=== PATIENT | male | born 1990 | race African-American/Black ===

== ENCOUNTER 2022-02-11 02:33 | Emergency (ER) | payer SELFPAY ==
[2022-02-11 02:46] VITALS: BP 134/90; PULSE 72; RESP 18; TEMP 98.4
--- NOTE | 2022-02-11 03:38 | XR ---
EXAMINATION TYPE: XR hand complete RT DATE OF EXAM: 02/11/2022 COMPARISON: NONE HISTORY: Pain TECHNIQUE: 3 views FINDINGS: There is acute transverse fracture of the distal shaft of the fifth metacarpal. No signific ant displacement. There is mild impaction. The carpal bones are intact. The fingers are intact. There is some soft tissue swelling on the dorsum of the hand. IMPRESSION: Acute boxer fracture distal fifth metacarpal. Soft tissue swelling.
--- NOTE | 2022-02-11 03:49 | ED ---
Upper Extremity HPI - General Chief Complaint: Extremity Injury, Upper Stated Complaint: RT hand injury Time Seen by Provider: 02/11/22 02:55 Source: police Mode of arrival: ambulatory Limitations: no limitations - Related Data Previous Rx's Medication Instructions Recorded Ibuprofen [Motrin] 600 mg PO Q8HR PRN #60 tab 02/11/22 Allergies Allergy/AdvReac Type Severity Reaction Status Date / Time No Known Allergies Allergy Verified 02/11/22 02:46 Review of Systems ROS Statement: Those systems with pertinent positive or pertinent negative responses have been documented in the HPI. ROS Other: All systems not noted in ROS Statement are negative. Past Medical History Past Medical History: No Reported History History of Any Multi-Drug Resistant Organisms: None Reported Past Surgical History: No Surgical Hx Reported Past Psychological History: No Psychological Hx Reported Smoking Status: Never smoker Past Alcohol Use History: None Reported Past Drug Use History: None Reported General Exam Limitations: no limitations Course Vital Signs 02/11/22 02:44 Temperature 98.4 F Pulse Rate 72 Respiratory 18 Rate Blood Pressure 134/90 O2 Sat by Pulse 98 Oximetry - Reevaluation(s) Reevaluation #1: 02/11/22 medical record is reviewed Patient symptoms are improved here in the ER Patient informed of results and questions answered Disposition Clinical Impression: Closed right hand fracture Disposition: HOME SELF-CARE Condition: Good Instructions (If sedation given, give patient instructions): Hand Fracture (ED) Prescriptions: Ibuprofen [Motrin] 600 mg PO Q8HR PRN #60 tab PRN Reason: Pain Is patient prescribed a controlled substance at d/c from ED?: No Referrals: None,Stated [Primary Care Provider] - 1-2 days Time of Disposition: 04:00
[2022-02-11] MEDS ORDERED: IBUPROFEN 800 MG TAB PO STA (03:51)
== END 2022-02-11 04:07 | disposition home or self-care (01) ==
LOC: EC 02:33
DX: S62.306A Unspecified fracture of fifth metacarpal bone, right hand, initial encounter for closed fracture (principal); X58.XXXA Exposure to other specified factors, initial encounter
CPT/HCPCS: 99283

== ENCOUNTER 2022-05-05 01:04 | Inpatient (IN) | payer OTHER ==
--- NOTE | 2022-05-05 01:50 | ED ---
General Adult HPI - General Chief complaint: Psychiatric Symptoms Stated complaint: Mental Health Time Seen by Provider: 05/05/22 01:42 Source: patient Mode of arrival: ambulatory Limitations: no limitations - History of Present Illness Initial comments: This is a 31-year-old male was brought in by police for delusional thoughts and causing his seen at a hotel. It was reported by police that the patient was half dressed in a hotel lobby waiting for "somebody was after him to come get him." The patient reportedly had his hotel room 20 heart looking for a wire. On arrival, the patient was manic and speaking very quickly about multiple different topics including "I haven't done anything to anyones kids" and "trigger situations cause this, trigger situations." The patient himself denied any homicidal or suicidal ideations. The patient stated that he has not been diagnosed with any medical problems nor takes any medications however was an ove rall poor historian. The patient was mumbling [id number] able to answer questions intermittently. - Related Data Previous Rx's Medication Instructions Recorded Ibuprofen [Motrin] 600 mg PO Q8HR PRN #60 tab 02/11/22 Allergies Allergy/AdvReac Type Severity Reaction Status Date / Time No Known Allergies Allergy Verified 02/11/22 02:46 Review of Systems ROS Statement: Those systems with pertinent positive or pertinent negative responses have been documented in the HPI. ROS Other: All systems not noted in ROS Statement are negative. Past Medical History Past Medical History: No Reported History History of Any Multi-Drug Resistant Organisms: None Reported Past Surgical History: No Surgical Hx Reported Past Psychological History: No Psychological Hx Reported Smoking Status: Never smoker Past Alcohol Use History: None Reported Past Drug Use History: None Reported General Exam Limitations: no limitations General appearance: alert, in no apparent distress Head exam: Present: atraumatic, normocephalic, normal inspection Eye exam: Present: normal appearance, PERRL Pupils: Present: normal accommodation ENT exam: Present: normal exam, normal oropharynx, mucous membranes moist Neck exam: Present: normal inspection, full ROM Respiratory exam: Present: normal lung sounds bilaterally Cardiovascular Exam: Present: regular rate, normal rhythm, normal heart sounds GI/Abdominal exam: Present: soft, normal bowel sounds Extremities exam: Present: normal inspection, full ROM Back exam: Present: normal inspection, full ROM Neurological exam: Present: alert, altered (Intermittently altered, pressured speech) Psychiatric exam: Present: anxious, manic, other (Delusions and pressured sp eech, speaking about multiple subjects one after another) Skin exam: Present: warm, dry Course Vital Signs 05/05/22 05/05/22 05/05/22 01:07 04:00 05:45 Temperature 99.1 F Pulse Rate 132 H 93 149 H Respiratory 16 18 18 Rate Blood Pressure 191/109 97/68 159/108 O2 Sat by Pulse 95 98 92 L Oximetry Procedures - Restraint - Face to Face Restraint Occurrence 1 Patient's Immediate Situation: Endangers self safety, Endangers others' safety Patient's Reaction to the Intervention: Hostile, Aggressive, Combative, Resistive to care Patient's Medical & Behavioral Condition: Agitated, Manic Need to Continue or Terminate Restraint or Seclusion: Continue Face to Face Eval of Restraint Date: 05/05/22 Face to Face Eval of Restraint Time: 05:20 Medical Decision Making - Medical Decision Making Was pt. sent in by a medical professional or institution (, PA, BLIND STITCH MACHINE OPERATOR, urgent care, hospital, or [facility]...) When possible be specific @ -No Did you speak to anyone other than the patient for history (EMS, parent, family, police, friend...)? What history was obtained from this source @ -Yes, police Did you review nursing and triage notes (agree or disagree)? Why? @ -I reviewed and agree with nursing and triage notes Were old charts reviewed (outside hosp., previous admission, EMS record, old EKG, old radiological studies, urgent care reports/EKG's, [facility] records)? Report findings @ -No old charts were reviewed Differential Diagnosis (chest pain, altered mental status, abdominal pain women, abdominal pain men, vaginal bleeding, weakness, fever, dyspnea, syncope, headache, dizziness, GI bleed, back pain, seizure, CVA, palpatations, mental health)? @ -Acute psychosis, paranoid schizophrenia, polysubstance abuse EKG interpreted by me (3pts min.). @ -None X-rays interpreted by me (1pt min.). @ -None done CT interpreted by me (1pt min.). @ -None done U/S interpreted by me (1pt. min.). @ -None done What testing was considered but not performed or refused? (CT, X-rays, U/S, labs)? Why? @ -None What meds were considered but not given or refused? Why? @ -None Did you discuss the management of the patient with other professionals (professionals i.e. , PA, BLIND STITCH MACHINE OPERATOR, lab, RT, psych nurse, social psychologist, kiln labourer, teacher, peace officer, heel caser)? Give summary @ -Yes, EPS nurse Was smoking cessation discussed for >3mins.? @ -Yes Was critical care preformed (if so, how long)? @ -Yes, see above Were there social determinants of health that impacted care today? How? (Homelessness, low income, unemployed, alcoholism, drug addiction, transportation, low edu. Level, literacy, decrease access to med. care, fci, rehab)? @ -Drug addiction Was there de-escalation of care discussed even if they declined (Discuss DNR or withdrawal of care, Hospice)? DNR status @ -No What co-morbidities impacted this encounter? (DM, HTN, Smoking, COPD, CAD, Cancer, CVA, ARF, Chemo, Hep., AIDS, mental health diagnosis, sleep apnea, morbid obesity)? @ -None Was patient admitted / discharged? Hospital course, mention meds given and route, prescriptions, significant lab abnormalities, going to OR and other pertinent info. @ -The patient was seen and evaluated in the emergency department. On arrival, the patient was accompanied by police and was petitioned. The patient was having delusions as well as hearing auditory hallucinations as he was having conversations with himself. On arrival, laboratory workup was not initially obtained however a breath alcohol test was administered and was 0.02. The patient was medically cleared for EPS to evaluate. The patient was called and was able to answer questions intermittently in between carrying conversation with himself. EPS evaluated the patient and did recommend laboratory workup as well as urine drug screen and COVID-19 test as they did recommend transfer for psychiatric care. Due to the patient's tenuous behavior, police were called for backup however the patient did ultimately agree to have his blood drawn and Covid test obtained. The patient remained stable. Laboratory workup was obtained and the patient was no longer medically cleared and needs to be medically admitted per EPS at 0445. Laboratory workup was significant for a glucose of 51, creatinine 1.93 as well as an elevated bilirubin. The patient struggled but was ultimately agreeable to having an IV placed however when reevaluated and told that he would need IV fluids and to be admitted, the patient had ripped out his IV and was no longer answering questions or responding. Because of this in the setting of the patient petitioned and needing medical management, police were called once again and the patient was given medications as well as restrained. The patient was given 2 L of normal saline fluid as well as dextrose. The patient was admitted with psychiatry on consult. The patient does have a primary care physician therefore [facility], Dr. Arciniega was contacted at [phone] and did accept the patient for admission. As the patient did require significant amount of sedation, the patient did also receive 100 mg of ketamine IV. The patient continued to thrash and yell and be aggressive toward staff. Because of this and in the interest a safety for the patient and the staff, the patient will be placed in ICU. The patient will also be started on a Precedex drip. Dr. Chow was contacted and did accept the patient for admission to the ICU. The patient was admitted in stable condition. Undiagnosed new problem with uncertain prognosis? @ -No Drug Therapy requiring intensive monitoring for toxicity (Heparin, Nitro, Insulin, Cardizem)? @ -No Were any procedures done? @ -No Diagnosis/symptom? @ -Acute psychosis Acute, or Chronic, or Acute on Chronic? @ -Acute Uncomplicated (without systemic symptoms) or Complicated (systemic symptoms)? @ -Complicated Side effects of treatment? @ -No Exacerbation, Progression, or Severe Exacerbation? @ -No Poses a threat to life or bodily function? How? (Chest pain, USA, MD, pneumonia, PE, COPD, DKA, ARF, appy, cholecystitis, CVA, Diverticulitis, Homicidal, Suicidal, threat to staff... and all critical care pts) @ -Yes, acute psychosis can cause self-harm and possible . Diagnosis/symptom? @ -Dehydration, KJ Acute, or Chronic, or Acute on Chronic? @ -Acute Uncomplicated (without systemic symptoms) or Complicated (systemic symptoms)? @ -Complicated Side effects of treatment? @ -none Exacerbation, Progression, or Severe Exacerbation] @ -no Poses a threat to life or bodily function? @ -Yes, continued dehydration and KJ can cause worsening and permanent kidney damage - Lab Data Result diagrams: 05/05/22 03:33 05/05/22 03:33 Lab Results 05/05/22 05/05/22 05/05/22 Range/Units 03:33 03:33 03:33 WBC 19.3 H (3.8-10.6) k/uL RBC 5.23 (4.30-5.90) m/uL Hgb 15.3 (13.0-17.5) gm/dL Hct 45.3 (39.0-53.0) % MCV 86.6 (80.0-100.0) fL MCH 29.2 (25.0-35.0) pg MCHC 33.7 (31.0-37.0) g/dL RDW 12.7 (11.5-15.5) % Plt Count 260 (150-450) k/uL MPV 7.7 Neutrophils % 86 % Lymphocytes % 6 % Monocytes % 6 % Eosinophils % 1 % Basophils % 0 % Neutrophils # 16.6 H (1.3-7.7) k/uL Lymphocytes # 1.2 (1.0-4.8) k/uL Monocytes # 1.1 H (0-1.0) k/uL Eosinophils # 0.2 (0-0.7) k/uL Basophils # 0.1 (0-0.2) k/uL Sodium 140 (137-145) mmol/L Potassium 4.8 (3.5-5.1) mmol/L Chloride 102 (98-107) mmol/L Carbon Dioxide 19 L (22-30) mmol/L Anion Gap 19 mmol/L BUN 35 H (9-20) mg/dL Creatinine 1.93 H (0.66-1.25) mg/dL Est GFR (CKD-EPI)AfAm 52 (>60 ml/min/1.73 sqM) Est GFR (CKD-EPI)NonAf 45 (>60 ml/min/1.73 sqM) Glucose 52 L (74-99) mg/dL Calcium 9.9 (8.4-10.2) mg/dL Total Bilirubin 2.9 H (0.2-1.3) mg/dL AST 134 H (17-59) U/L ALT 67 H (4-49) U/L Alkaline Phosphatase 93 (38-126) U/L Total Protein 8.6 H (6.3-8.2) g/dL Albumin 5.5 H (3.5-5.0) g/dL Serum Alcohol 15 mg/dL Coronavirus (PCR) Not Detected (Not Detectd) Critical Care Time Critical Care Time: Yes Total Critical Care Time: 46 Disposition Clinical Impression: Psychosis, Dehydration, KJ (acute kidney injury) [facility] Condition: Stable Is patient prescribed a controlled substance at d/c from ED?: No Referrals: None,Stated [Primary Care Provider] - 1-2 days Time of Disposition: 04:50 Decision to Admit Reason: Admit from EC Decision Date: 05/05/22 Decision Time: 04:50
[2022-05-05] MEDS ORDERED: diphenhydrAMINE 50 MG/ML 1 ML VIAL IM STA ×2 (03:09→04:49)
[2022-05-05] MEDS ORDERED: LORazepam 2 MG/ML INJ IM STA ×2 (03:09→04:49)
[2022-05-05] MEDS ORDERED: HALOPERIDOL LACTATE 5 MG/ML 1 ML VIAL IM STA ×2 (03:09→04:49)
[2022-05-05 03:39] LABS: Basophils # (A) 0.1 k/uL (0-0.2); Basophils % (A) 0 %; Eosinophils # (A) 0.2 k/uL (0-0.7); Eosinophils % (A) 1 %; HCT 45.3 % (39.0-53.0); HGB 15.3 gm/dL (13.0-17.5); Lymphocytes # (A) 1.2 k/uL (1.0-4.8); Lymphocytes % (A) 6 %; MCH 29.2 pg (25.0-35.0); MCHC 33.7 g/dL (31.0-37.0); MCV 86.6 fL (80.0-100.0); Mean Platelet Volume 7.7; Monocytes # (A) 1.1 k/uL (0-1.0); Monocytes % (A) 6 %; Neutrophils # (A) 16.6 k/uL (1.3-7.7); Neutrophils % (A) 86 %; Platelet Count 260 k/uL (150-450); RBC 5.23 m/uL (4.30-5.90); RDW 12.7 % (11.5-15.5); WBC 19.3 k/uL (3.8-10.6)
[2022-05-05 03:51] LABS: Albumin 5.5 g/dL (3.5-5.0); Calcium 9.9 mg/dL (8.4-10.2); Potassium 4.8 mmol/L (3.5-5.1); Total Bilirubin 2.9 mg/dL (0.2-1.3); Total Protein 8.6 g/dL (6.3-8.2)
[2022-05-05] MEDS ORDERED: DEXTROSE 50% SYRINGE 50 ML IVP STA (04:17)
[2022-05-05] MEDS ORDERED: SODIUM CHLORIDE 0.9% 1,000 ML IV ONE ×2 (04:17→04:54)
[2022-05-05] MEDS ORDERED: diphenhydrAMINE 50 MG/ML 1 ML VIAL IVP STA (04:20)
[2022-05-05] MEDS ORDERED: LORazepam 2 MG/ML INJ IV STA (04:20)
[2022-05-05] MEDS ORDERED: HALOPERIDOL LACTATE 5 MG/ML 1 ML VIAL IVP STA (04:20)
[2022-05-05] MEDS ORDERED: NALOXONE 0.4 MG/ML 1 ML VIAL IV PRN (04:54)
[2022-05-05] MEDS ORDERED: SODIUM CHLORIDE 0.9% 1,000 ML IV SCH (05:00)
[2022-05-05] MEDS ORDERED: KETAMINE 10 MG/ML 20 ML VIAL IVPB STA (05:39)
[2022-05-05 05:57] LABS: Glucose,Whole Blood 151 mg/dL (70-110)
--- NOTE | 2022-05-05 06:01 | P.HPIM ---
History of Present Illness H&P Date: 05/05/22 The patient is a 31-year-old male who was brought into the emergency room under police custody for erratic behavior. The patient was reportedly making is seen at a hotel, where he was half dressed standing in the lobby. After arrival at the emergency room, the patient was noted to be hyperverbal and manic. He was evaluated by psychiatry and recommended for a medical admission. The patient also became very agitated in the emergency room requiring multiple people to intervene and subsequently being placed in restraints. The patient was actively psychotic at the time of interview and was not answering any questions appropriately. Unknown if patient consumed any substances. A urine sample could not be obtained due to the patient being extremely combative. Review of systems: Unable to obtain due to mental status Physical examination: Vital signs reviewed General: In restraints, non toxic, no distress, appears at stated age, overweight Derm: no unusual rashes/lesions, warm Head: atraumatic, normocephalic, symmetric Eyes: EOMI, no lid lag, anicteric sclera, pupils equal round reactive to light ENT: Nose and ears atraumatic Neck: No cervical lymphadenopathy, trachea midline, supple Mouth: no lip lesion, mucus membranes moist Cardiovascular: S1S2 reg, no murmur, positive dorsalis pedis pulse bilateral, no edema Lungs: CTA bilateral, no rhonchi, no rales, no accessory muscle use Abdominal: soft, nontender to palpation, no guarding Ext:No gross muscle atrophy, no contractures, Neuro: No gross focal neuro deficits Psych: Internally preoccupied, speaking incoherently Assessment: Agitated psychosis Leukocytosis Kidney injury Abnormal LFTs Hypoglycemia Imaging: None performed Data Review: Vital signs at time of arrival in the emergency room reviewed with BP 191/109, pulse 132, respiratory rate 16, SpO2 95% on room air, and temperature 99.1F. Laboratory evaluation remarkable for leukocytosis of 19.3, BUN 35, creatinine 1.93, glucose 52, total bilirubin 2.9, AST 134, ALT 67, with serum alcohol level XV Plan: Case discussed with ED physician in extensive detail Patient to be admitted to medical ICU and initiated on Precedex infusion Psychiatry consulted Leukocytosis suspect is secondary to acute stressor IV fluids and monitor BMP and LFTs DVT prophylaxis: Lovenox The patient is admitted with an anticipated greater than 2 midnight stay for evaluation of delirium CODE STATUS: Full Code Past Medical History Past Medical History: No Reported History History of Any Multi-Drug Resistant Organisms: None Reported Past Surgical History: No Surgical Hx Reported Past Psychological History: No Psychological Hx Reported Smoking Status: Never smoker Past Alcohol Use History: None Reported Past Drug Use History: None Reported - Past Family History Father Family Medical History: Unable to Obtain (due to mental status) Medications and Allergies Home Medications Medication Instructions Recorded Confirmed Type Ibuprofen [Motrin] 600 mg PO Q8HR PRN #60 tab 02/11/22 Rx Allergies Allergy/AdvReac Type Severity Reaction Status Date / Time No Known Allergies Allergy Verified 02/11/22 02:46 Physical Exam Vitals: Vital Signs Temp Pulse Resp BP Pulse Ox 05/05/22 05:45 149 H 18 159/108 92 L 05/05/22 04:00 93 18 97/68 98 05/05/22 01:07 99.1 F 132 H 16 191/109 95 Intake and Output 05/04/22 05/04/22 05/05/22 14:59 22:59 06:59 Other: Weight 117.934 kg Results CBC & Chem 7: 05/05/22 03:33 05/05/22 03:33 Labs: Abnormal Lab Results - Last 24 Hours (Table) 05/05/22 05/05/22 05/05/22 Range/Units 03:33 03:33 05:54 WBC 19.3 H (3.8-10.6) k/uL Neutrophils # 16.6 H (1.3-7.7) k/uL Monocytes # 1.1 H (0-1.0) k/uL Carbon Dioxide 19 L (22-30) mmol/L BUN 35 H (9-20) mg/dL Creatinine 1.93 H (0.66-1.25) mg/dL Glucose 52 L (74-99) mg/dL POC Glucose (mg/dL) 151 H (70-110) mg/dL Total Bilirubin 2.9 H (0.2-1.3) mg/dL AST 134 H (17-59) U/L ALT 67 H (4-49) U/L Total Protein 8.6 H (6.3-8.2) g/dL Albumin 5.5 H (3.5-5.0) g/dL
[2022-05-05] MEDS: DEXMEDETOMIDINE/0.9% NACL(PMX) 400 MCG in EMPTY BAG 1 BAG IV SCH ×2 (06:15→22:58)
[2022-05-05 06:23] LABS: Glucose,Whole Blood 107 mg/dL (70-110)
--- NOTE | 2022-05-05 09:18 | P.CNPUL ---
History of Present Illness Consult date: 05/05/22 Chief complaint: Altered mental status History of present illness: 31-year-old male patient brought into the emergency department because of his active and aggressive behavior. The patient was in a [place] [facility] motel where he was found to active years and he was half dressed in the lobby. He was brought into the emergency department and the patient was in a manic state. He became very agitated in the emergency department. It took at least 10 people to restrain this gentleman. He was acting psychotic. At that point, he was given Haldol 5 mg 2, Ativan a total of 2 mg, ketamine a total of 100 mg and Benadryl a total of 100 mg. Subsequently, the patient got transferred to intensive care unit and the patient is currently on a Precedex drip running at 0.4 mcg/kg/h. Serum alcohol was positive at 15. Covid 19 testing was negative. Labs showed an acute kidney injury with a BUN of 35 and a creatinine of 1.9. Sodiums of 140 with a potassium level of 4.8. Glucose was 52 and this was treated and the sugar currently is at 107. The previous gauze at 19.3 hemoglobin is 15.3 and the platelet does to 60. Urine drug screen has not been done yet and this sample has been sent and was not resulted. No chest x-ray. No CAT scan of the brain. Currently is on also on IV fluids with normal saline at the rate of 75 mL an hour. He is in sinus tachycardia. He is on oxygen at 2 L per minute nasal cannula. Review of Systems ROS unobtainable: due to mental status Past Medical History Past Medical History: No Reported History History of Any Multi-Drug Resistant Organisms: None Reported Past Surgical History: No Surgical Hx Reported Past Psychological History: No Psychological Hx Reported Smoking Status: Never smoker Past Alcohol Use History: None Reported Past Drug Use History: None Reported - Past Family History Father Family Medical History: Unable to Obtain (due to mental status) Medications and Allergies Home Medications Medication Instructions Recorded Confirmed Type RX: Ibuprofen [Motrin] 600 mg PO Q8HR PRN #60 tab 02/11/22 Rx Allergies Allergy/AdvReac Type Severity Reaction Status Date / Time No Known Allergies Allergy Verified 02/11/22 02:46 Physical Exam Vitals: Vital Signs Temp Pulse Resp BP Pulse Ox 05/05/22 05:45 149 H 18 159/108 92 L 05/05/22 04:00 93 18 97/68 98 05/05/22 01:07 99.1 F 132 H 16 191/109 95 Intake and Output 05/04/22 05/05/22 05/05/22 22:59 06:59 14:59 Intake Total 3.685 Balance 3.685 Intake: Intake, IV Titration 3.685 Amount Dexmedetomidine/0.9% NaCl 3.685 (Pmx) 400 mcg In Empty Bag 1 bag @ 0.2 MCG/KG/HR 5.897 mls/hr IV .[id number] [facility] Rx#:[id number] Other: Weight 117.934 kg General: In restraints, non toxic, no distress, appears at stated age, overweight, currently on 2 L/m nasal cannula, calm and comfortable on Precedex Derm: no unusual rashes/lesions, warm Head: atraumatic, normocephalic, symmetric Eyes: EOMI, no lid lag, anicteric sclera, pupils equal round reactive to light ENT: Nose and ears atraumatic Neck: No cervical lymphadenopathy, trachea midline, supple Mouth: no lip lesion, mucus membranes moist Cardiovascular: S1S2 reg, no murmur, positive dorsalis pedis pulse bilateral, no edema Lungs: CTA bilateral, no rhonchi, no rales, no accessory muscle use Abdominal: soft, nontender to palpation, no guarding Ext:No gross muscle atrophy, no contractures, Neuro: No gross focal neuro deficits Psych: Internally preoccupied, speaking incoherently Results - Laboratory Findings CBC and BMP: 05/05/22 03:33 05/05/22 03:33 Abnormal lab findings: Abnormal Labs 05/05/22 05/05/22 05/05/22 03:33 03:33 05:54 WBC 19.3 H Neutrophils # 16.6 H Monocytes # 1.1 H Carbon Dioxide 19 L BUN 35 H Creatinine 1.93 H Glucose 52 L POC Glucose (mg/dL) 151 H Total Bilirubin 2.9 H AST 134 H ALT 67 H Total Protein 8.6 H Albumin 5.5 H Assessment and Plan Plan: Altered mental status, acute delirium, could be medication or drug-related. Exact cause is not clear. The patient is currently on Precedex to control his agitation running at a dose of 0.4 mcg/kg/h. He is hemodynamically stable. Acute alcohol intoxication Sinus tachycardia Acute kidney injury Acute agitation/psychosis Plan Obtain urine drug screen Obtain chest x-ray Obtain CPK Continue IV fluids with normal saline at the rate of 75 mL an hour and monitor the creatinine Monitor the white cell count The blood sugars May need a CAT scan of the brain if there is no reasonable neurological recovery Keep in ICU and will continue to monitor Off the IV Protonix Obtain urinalysis [place] Lovenox portably prophylaxis
--- NOTE | 2022-05-05 10:13 | XR ---
EXAMINATION TYPE: XR chest 1V portable DATE OF EXAM: 05/05/2022 10:08 AM COMPARISON: None TECHNIQUE: XR chest 1V portable Portable AP radiograph of the chest. CLINICAL INDICATION:Male, 31 years old with history of baseline; FINDINGS: Lungs/Pleura: There is no evidence of pleural effusion, focal consolidation, or pneumothorax. Pulmonary vascularity: Unremarkable. Heart/mediastinum: Cardiomediastinal silhouette is unremarkable. Musculoskeletal: No acute osseous pathology. IMPRESSION: No acute cardiopulmonary disease/process.
[2022-05-05] MEDS: ENOXAPARIN 40 MG/0.4 ML SYRINGE SQ SCH (10:16)
--- NOTE | 2022-05-05 10:50 | P.PN ---
Progress Note - Text Progress Note Date: 05/05/22 Patient was seen in the ICU. He came into the ED for agitation and delirium. Patient currently is somnolent from sedation. He is also on 4. restraints. I discussed with the nurse that whenever patient gets up his confused. Nurse also said that a UDS was sent. We'll continue current management.
[2022-05-05 11:04] LABS: Glucose,Whole Blood 56 mg/dL (70-110)
[2022-05-05] MEDS ORDERED: DEXTROSE 50% SYRINGE 50 ML IVP ONE (11:04)
[2022-05-05 11:26] LABS: Glucose,Whole Blood 134 mg/dL (70-110)
[2022-05-05 13:44] LABS: Glucose,Whole Blood 68 mg/dL (70-110)
[2022-05-05] MEDS: DEXTROSE 5% IN WATER 1,000 ML IV SCH ×2 (14:03→22:34)
[2022-05-05 14:05] LABS: Glucose,Whole Blood 79 mg/dL (70-110)
[2022-05-05 16:01] LABS: Glucose,Whole Blood 100 mg/dL (70-110)
[2022-05-05 18:13] LABS: Glucose,Whole Blood 98 mg/dL (70-110)
[2022-05-05 18:16] LABS: Urine Alcohol Negative (Negative); Urine Barbiturate Negative (Negative); Urine Cocaine Negative (Negative); Urine Methadone Negative (Negative); Urine Opiates Negative (Negative); Urine Phencyclidine Negative (Negative)
[2022-05-05 21:43] LABS: Glucose,Whole Blood 103 mg/dL (70-110)
--- NOTE | 2022-05-05 23:32 | P.CN ---
Psychiatric Consult - . Consult date: 05/05/22 Consult:: IDENTIFYING DATA: This patient is a 31 year old male with history of alcohol and substance abuse who was admitted due to acute psychosis. REASON FOR REFERRAL: Psychiatry was consulted for "acute psychosis, petitioned" HISTORY OF PRESENT ILLNESS: Per ER records, patient was "brought in by police for delusional thoughts and causing his seen at a hotel. It was reported by police that the patient was half dressed in a hotel lobby waiting for "somebody was after him to come get him." The patient reportedly had his hotel room 20 heart looking for a wire. On arrival, the patient was manic and speaking very quickly about multiple different topics including "I haven't done anything to anyones kids" and "trigger situations cause this, trigger situations." The patient himself denied any homicidal or suicidal ideations. The patient stated that he has not been diagnosed with any medical problems nor takes any medications however was an overall poor historian. The patient was mumbling [id number] able to answer questions intermittently." "He became very agitated in the emergency department. It took at least 10 people to restrain this gentleman. He was acting psychotic. At that point, he was given Haldol 5 mg 2, Ativan a total of 2 mg, ketamine a total of 100 mg and Benadryl a total of 100 mg." On my assessment, patient was found asleep in his ICU bed with sitter at bedside. Staff report he has been drowsy but calm, not agitated most of the day. He has difficulty staying awake during our assessment but is able to provide brief answers in a mumbled soft tone. Patient reports he was drinking alcohol and using Arely prior to this event. He reports this happened 2 other times when he flipped out after taking too much Arely and was hearing voices and seei ng things previously. Patients admits to using about 1 pint of Tony Emeterio daily for the past 2-3 months. Vital signs appears stable currently no symptoms of alcohol withdrawal. He also admits to smoking marijuana. At this time patient denies any suicidal or homicidal ideation, intent or plan. Patient denies any auditory, visual hallucinations currently and denies any paranoia or delusions. PAST PSYCHIATRIC HISTORY: Patient has a a history of of 2 prior episodes of substance induced psychosis. Patient denies being on any psychiatric medications. Patient reports previous psychiatric hospitalizations in [place] in January 2015 after similar psychotics episode when using too much Arely. Patient denies any psychiatric outpatient follow-up. Patient denies any history of suicide attempts in the past. PAST MEDICAL HISTORY: denies ALLERGIES: as per EMR. CHEMICAL DEPENDENCY HISTORY: as per HPI. FAMILY PSYCHIATRIC/SUBSTANCE USE HISTORY: denies SOCIAL HISTORY: Lives in a house with his cousin. Never , has 2 children. Works at [employer] MENTAL STATUS EXAM: General Appearance: Patient appears to be stated age , has many tattoos on his chest and arms. Behavior: Patient is sleepy, laying in bed without any agitated behavior currently, but was severely agitated last night and required multiples PRNs and restraints. Speech: Patient's speech is fluent and non-pressured. Mood/Affect: Mood is irritable, affect is blunted Suicidality/Homicidality: Patient denies having any suicidal or homicidal ideation intent or plan. Perceptions: Patient denies any visual hallucinations and denies any auditory hallucinations Though content/process: There is no evidence of any delusional thought content at this itime, and thought process is linear but brief. Memory and concentration: Sleepy from PRNS medications given overnight. Unable to fully assess orientation. Judgment and insight: poor IMPRESSIONS: Substance-induced psychosis Cannabis use disorder Alcohol use disorder Stimulant use disorder PLAN: -At this time, it is possible patient may require inpatient psychiatric admission. He was still very drowsy on my evaluation today and will need to be reevaluated when he is able to maintain wakefulness and engage in assessment. -Patient DOES NOT have decision making capacity at this time and is unable to reason through and communicate/appreciate the risks, benefits and alternatives to treatment. -Delirium precautions recommended with patient including - avoiding use of narcotics and EGG CRATER sedatives, limit anticholinergic medications when possible, frequent re-orientation, minimize use of restraints, open window shades during the day and close them at night -Would recommend the following medication changes/additions: CIWA scale to monitor for alcohol withdrawal. Continue to monitor vital signs. Haldol 5 mg po/IM Q6H PRN for psychosis/agitation and Ativan 1 mg po/IM Q6H PRN for anxiety/agitation. -Continue 1:1 sitter for safety -Cannot leave AMA at this time. Patient will need a petition and certification if attempting to leave AMA. -tree worker to provide patient with outpatient mental health/psychiatry resources for appropriate follow up upon discharge. -tree worker to provide patient substance use treatment resources including AA/NA meetings in the community. -tree worker to provide patient with access line number to call for inpatient substance rehab. -Communicated plan to patient's nurse -Will continue to follow along -Please contact with any questions. 05/05/22 13:18 05/05/22 19:54 05/05/22 23:13
[2022-05-06 01:22] LABS: Glucose,Whole Blood 104 mg/dL (70-110)
[2022-05-06 04:32] LABS: HCT 38.1 % (39.0-53.0); HGB 12.8 gm/dL (13.0-17.5); MCH 29.1 pg (25.0-35.0); MCHC 33.5 g/dL (31.0-37.0); MCV 86.8 fL (80.0-100.0); Mean Platelet Volume 7.9; Platelet Count 218 k/uL (150-450); RDW 12.7 % (11.5-15.5); WBC 7.6 k/uL (3.8-10.6)
[2022-05-06 04:52] LABS: Calcium 8.5 mg/dL (8.4-10.2); Potassium 3.6 mmol/L (3.5-5.1); Total Bilirubin 3.3 mg/dL (0.2-1.3); Total Protein 6.5 g/dL (6.3-8.2)
[2022-05-06] MEDS: DEXTROSE 5% IN WATER 1,000 ML IV SCH (06:15)
[2022-05-06] MEDS: ENOXAPARIN 40 MG/0.4 ML SYRINGE SQ SCH (08:38)
--- NOTE | 2022-05-06 08:45 | P.PN ---
Subjective Progress Note Date: 05/06/22 31-year-old male patient brought into the emergency department because of his active and aggressive behavior. The patient was in a [place] [facility] where he was found to active years and he was half dressed in the lobby. He was brought into the emergency department and the patient was in a manic state. He became very agitated in the emergency department. It took at least 10 people to restrain this gentleman. He was acting psychotic. At that point, he was given Haldol 5 mg 2, Ativan a total of 2 mg, ketamine a total of 100 mg and Benadryl a total of 100 mg. Subsequently, the patient got transferred to intensive care unit and the patient is currently on a Precedex drip running at 0.4 mcg/kg/h. Serum alcohol was positive at 15. Covid 19 testing was negative. Labs showed an acute kidney injury with a BUN of 35 and a creatinine of 1.9. Sodiums of 140 with a potassium level of 4.8. Glucose was 52 and this was treated and the sugar currently is at 107. The previous gauze at 19.3 hemoglobin is 15.3 and the platelet does to 60. Urine drug screen has not been done yet and this sample has been sent and was not resulted. No chest x-ray. No CAT scan of the brain. Currently is on also on IV fluids with normal saline at the rate of 75 mL an hour. He is in sinus tachycardia. He is on oxygen at 2 L per minute nasal cannula. On 05/06/2022, the patient is awake and alert and he is off Precedex since yesterday 3 PM. No focal neurological deficits. Is a typical amphetamine overdose and the patient's urine drug screen was also positive for amphetamine. He also had a component of rhabdomyolysis. CPK was 2935. He was given IV fluids and his acute kidney injury is also improving. Creatinine down to 1.26. Sodium level is at 137 with a potassium level of 3.6. He did have episodes of hypoglycemia. Based on that, he was started on D5 water. His blood sugar this morning is at 98. D5 water is running at the rate of 1 25 mL an hour. Covid 19 testing is essentially negative. No other significant events overnight. No seizure activity. No focal neurological deficit. He is alert and awake. Chest x-ray was negative. Is currently on room air oxygen. The patient was also evaluated seen by psychiatry. The working diagnosis still substance-induced psychosis related to amphetamine. He also had alcohol in his system and the time of his arrival. Objective - Vital Signs Vital signs: Vital Signs Temp 98.1 F 05/06/22 04:00 Pulse 70 05/06/22 07:30 Resp 15 05/06/22 07:30 BP 105/63 05/06/22 07:30 Pulse Ox 95 05/06/22 07:30 FiO2 Intake & Output 05/05/22 05/06/22 05/06/22 17:59 06:59 18:59 Intake Total 250 Output Total 0 Balance 250 Weight Intake: IV 250 Dextrose 5% in Water 1, 250 000 ml @ 125 mls/hr IV . Q8H [facility] Rx#:[id number] Sodium Chloride 0.9% 1, 000 ml @ 75 mls/hr IV . [id number] [facility] Rx#:[id number] Intake, IV Titration Amount Dexmedetomidine/0.9% NaCl (Pmx) 400 mcg In Empty Bag 1 bag @ 0.2 MCG/KG/HR 5.897 mls/hr IV .[id number] [facility] Rx#:[id number] Output: Urine 0 Other: Voiding Method # Voids - Exam General: In restraints, non toxic, no distress, appears at stated age, overweight, currently on room air oxygen Derm: no unusual rashes/lesions, warm Head: atraumatic, normocephalic, symmetric Eyes: EOMI, no lid lag, anicteric sclera, pupils equal round reactive to light ENT: Nose and ears atraumatic Neck: No cervical lymphadenopathy, trachea midline, supple Mouth: no lip lesion, mucus membranes moist Cardiovascular: S1S2 reg, no murmur, positive dorsalis pedis pulse bilateral, no edema Lungs: CTA bilateral, no rhonchi, no rales, no accessory muscle use Abdominal: soft, nontender to palpation, no guarding Ext:No gross muscle atrophy, no contractures, Neuro: No gross focal neuro deficits, alert and awake Psych: C second evaluation. No signs of any acute psychosis at this point in time. - Labs CBC & Chem 7: 05/06/22 04:21 05/06/22 04:21 Labs: Abnormal Lab Results - Last 24 Hours (Table) 0305/05/22 05/05/22 Range/Units 06:34 10:24 10:24 Hgb (13.0-17.5) gm/dL Hct (39.0-53.0) % Creatinine (0.66-1.25) mg/dL POC Glucose (mg/dL) (70-110) mg/dL Total Bilirubin (0.2-1.3) mg/dL AST (17-59) U/L ALT (4-49) U/L Creatine Kinase 2935 H* (55-170) U/L CK-MB (CK-2) 8.1 H (0.0-2.4) ng/mL Ur Amphetamine Screen Positive A (Negative) 05/05/22 05/05/22 05/05/22 Range/Units 11:03 11:24 13:43 Hgb (13.0-17.5) gm/dL Hct (39.0-53.0) % Creatinine (0.66-1.25) mg/dL POC Glucose (mg/dL) 56 L 134 H 68 L (70-110) mg/dL Total Bilirubin (0.2-1.3) mg/dL AST (17-59) U/L ALT (4-49) U/L Creatine Kinase (55-170) U/L CK-MB (CK-2) (0.0-2.4) ng/mL Ur Amphetamine Screen (Negative) 05/06/22 05/06/22 Range/Units 04:21 04:21 Hgb 12.8 L (13.0-17.5) gm/dL Hct 38.1 L (39.0-53.0) % Creatinine 1.26 H (0.66-1.25) mg/dL POC Glucose (mg/dL) (70-110) mg/dL Total Bilirubin 3.3 H (0.2-1.3) mg/dL AST 84 H (17-59) U/L ALT 50 H (4-49) U/L Creatine Kinase (55-170) U/L CK-MB (CK-2) (0.0-2.4) ng/mL Ur Amphetamine Screen (Negative) Assessment and Plan Plan: Substance induced psychosis, recovered. This is related to amphetamine Mild rhabdomyolysis Altered mental status, acute delirium, recovered Acute alcohol intoxication Sinus tachycardia, recovered Acute kidney injury Acute agitation/psychosis, recovered Hypoglycemia, recovered Plan Discontinue sitter Transfer this patient to medical floor, no need for telemetry Watch for in size of delirium tremens Provide diet
[2022-05-06] MEDS ORDERED: LORazepam 2 MG/ML INJ IV PRN ×3 (11:48)
--- NOTE | 2022-05-06 11:51 | P.PN ---
Subjective Progress Note Date: 05/06/22 Hospital Course: 31-year-old male who was brought into the emergency room under police custody for erratic behavior. Vital signs at time of arrival in the emergency room reviewed with BP 191/109, pulse 132, respiratory rate 16, SpO2 95% on room air, and temperature 99.1F. Laboratory evaluation remarkable for leukocytosis of 19.3, BUN 35, creatinine 1.93, glucose 52, total bilirubin 2.9, AST 134, ALT 67, with serum alcohol level 15. CK elevated to 2935. Urine toxicology positive for amphetamine. Patient was initially in the medical ICU on Precedex drip. Precedex drip discontinued. Renal function improved with IV fluids. Bedside sitter discontinued, patient pending transfer to general medical floor. Psychiatry was consulted. Pending further evaluation once patient is more stable. Subjective: Patient seen and examined at bedside. No acute events overnight. He denies any chest pain, shortness of breath, abdominal pain, nausea, vomiting, diarrhea, constipation. He denies any urinary complaints. Pertinent positives and negatives as discussed above, a complete review of systems was performed and all other systems are negative. Vitals Signs Reviewed. General: nontoxic, no distress, appears at stated age Derm: warm, dry Head: atraumatic, normocephalic, symmetric Eyes: EOMI, no lid lag, anicteric sclera Mouth: no lip lesion, mucus membranes moist Cardiovascular: S1S2 reg, no murmur Lungs: CTA bilateral, no rhonchi, no rales , no accessory muscle use Abdominal: soft, nontender to palpation, no guarding, no appreciable organomegaly Ext: no gross muscle atrophy, no edema, no contractures Neuro: CN II-XI grossly intact, no focal neuro deficits Psych: Alert, oriented, appropriate affect Data Reviewed Today: Pertinent Labs: WBC 7.6, hemoglobin 12.8, sodium 137, potassium 3.6, bicarb 28, creatinine 1.26, total bilirubin 2.3, AST 84, ALT 50 Assessment and Plan: Patient remains in critical condition, will be transferred out of the ICU to general medical floor. We will continue to monitor for delirium tremens in the setting of alcohol use. Active: Rhabdomyolysis Nonoliguric, Acute kidney injury Substance use disorder Mild normocytic anemia Hyperbilirubinemia Transaminitis Alcohol use disorder, drinks 1 pint of tequila daily -Hotel Registration Clerk note reviewed: Discontinue bedside sitter, transfer patient, moderate for DTs -Patient is now off of Precedex drip -We'll transfer out of the ICU to Gen. medical floor -D5 water switched to lactated Ringer at 125 mL an hour -Repeat CK, trend till peak -Renal function improving with IV fluids, creatinine down trending to 1.26 -Encourage oral intake -Normocytic anemia likely in the setting of acute illness, continue to monitor, no active bleeding -Liver function test improving, likely in the setting of acute substance use and alcohol use -Patient want to consider outpatient rehab once discharged -Psychiatry following, may or may not consider patient for inpatient rehab -Thiamine and folic acid ordered -Started on IV Ativan as needed per CIWA scoring, for alcohol withdrawal Resolved: Substance induced psychosis Acute toxic encephalopathy Acute alcohol intoxication Sinus tachycardia Leukocytosis Metabolic acidosis Hypoglycemia DVT ppx: Lovenox 40 mg daily Code status: Full code Anticipated discharge place: Pending clinical course Anticipated discharge time: Pending clinical course Objective - Vital Signs Vital signs: Vital Signs Temp 97.6 F 05/06/22 08:00 Pulse 78 05/06/22 08:00 Resp 16 05/06/22 08:00 BP 120/69 05/06/22 08:00 Pulse Ox 96 05/06/22 08:00 FiO2 Intake & Output 05/05/22 05/06/22 05/06/22 17:59 06:59 18:59 Intake Total 250 Output Total 0 Balance 250 Weight Intake: IV 250 Dextrose 5% in Water 1, 250 000 ml @ 125 mls/hr IV . Q8H [facility] Rx#:[id number] Sodium Chloride 0.9% 1, 000 ml @ 75 mls/hr IV . [id number] [facility] Rx#:[id number] Intake, IV Titration Amount Dexmedetomidine/0.9% NaCl (Pmx) 400 mcg In Empty Bag 1 bag @ 0.2 MCG/KG/HR 5.897 mls/hr IV .[id number] [facility] Rx#:[id number] Output: Urine 0 Other: Voiding Method # Voids 1 # Bowel Movements 1 - Labs CBC & Chem 7: 05/06/22 04:21 05/06/22 04:21 Labs: Abnormal Lab Results - Last 24 Hours (Table) 05/05/22 05/05/22 05/05/22 Range/Units 06:34 10:24 10:24 Hgb (13.0-17.5) gm/dL Hct (39.0-53.0) % Creatinine (0.66-1.25) mg/dL POC Glucose (mg/dL) (70-110) mg/dL Total Bilirubin (0.2-1.3) mg/dL AST (17-59) U/L ALT (4-49) U/L Creatine Kinase 2935 H* (55-170) U/L CK-MB (CK-2) 8.1 H (0.0-2.4) ng/mL Ur Amphetamine Screen Positive A (Negative) 05/05/22 05/05/22 05/05/22 Range/Units 11:03 11:24 13:43 Hgb (13.0-17.5) gm/dL Hct (39.0-53.0) % Creatinine (0.66-1.25) mg/dL POC Glucose (mg/dL) 56 L 134 H 68 L (70-110) mg/dL Total Bilirubin (0.2-1.3) mg/dL AST (17-59) U/L ALT (4-49) U/L Creatine Kinase (55-170) U/L CK-MB (CK-2) (0.0-2.4) ng/mL Ur Amphetamine Screen (Negative) 05/06/22 05/06/22 Range/Units 04:21 04:21 Hgb 12.8 L (13.0-17.5) gm/dL Hct 38.1 L (39.0-53.0) % Creatinine 1.26 H (0.66-1.25) mg/dL POC Glucose (mg/dL) (70-110) mg/dL Total Bilirubin 3.3 H (0.2-1.3) mg/dL AST 84 H (17-59) U/L ALT 50 H (4-49) U/L Creatine Kinase (55-170) U/L CK-MB (CK-2) (0.0-2.4) ng/mL Ur Amphetamine Screen (Negative)
[2022-05-06] MEDS: FOLIC ACID 1 MG TAB PO SCH (13:11)
[2022-05-06] MEDS: THIAMINE 100 MG TAB PO SCH (13:11)
[2022-05-06] MEDS: LACTATED RINGERS 1,000 ML IV SCH ×2 (13:13→21:18)
[2022-05-07] MEDS: LACTATED RINGERS 1,000 ML IV SCH ×3 (04:33→20:48)
[2022-05-07 09:09] LABS: Basophils # (A) 0.03 X 10*3/uL (0.00-0.10); Basophils % (A) 0.5 %; Eosinophils # (A) 0.16 X 10*3/uL (0.04-0.35); Eosinophils % (A) 2.6 %; HCT 36.8 % (39.6-50.0); HGB 12.6 g/dL (13.0-17.0); Immature Grans, Automated 0.3 %; Lymphocytes # (A) 2.42 X 10*3/uL (0.90-5.00); Lymphocytes % (A) 39.6 %; MCH 29.5 pg (27.0-32.0); MCHC 34.2 g/dL (32.0-37.0); MCV 86.2 fL (80.0-97.0); Mean Platelet Volume 10.4 fL (9.5-12.2); Monocytes # (A) 0.71 X 10*3/uL (0.20-1.00); Monocytes % (A) 11.6 %; NRBC Per 100 WBC 0 /100 WBCS (0.0-0.0); Neutrophils # (A) 2.77 X 10*3/uL (1.80-7.70); Neutrophils % (A) 45.4 %; Platelet Count 247 X 10*3/uL (140-440); RBC 4.27 X 10*6/uL (4.40-5.60); RDW 12.5 % (11.5-14.5); WBC 6.11 X 10*3/uL (4.50-10.00)
[2022-05-07 09:17] LABS: African American GFR (CKD) 114.9 (60.0-200.0); Anion Gap 9.5 mmol/L (10.00-18.00); Carbon Dioxide 26.5 mmol/L (20.0-27.5); Non-African American GFR(CKD) 99.1 (60.0-200.0); Potassium 3.9 mmol/L (3.5-5.5)
[2022-05-07] MEDS: FOLIC ACID 1 MG TAB PO SCH (10:08)
[2022-05-07] MEDS: THIAMINE 100 MG TAB PO SCH (10:08)
[2022-05-07] MEDS: ENOXAPARIN 40 MG/0.4 ML SYRINGE SQ SCH (10:08)
[2022-05-07] MEDS: MULTIVITAMINS, THERA 1 EACH TAB PO SCH (10:08)
--- NOTE | 2022-05-07 11:44 | P.PN ---
Subjective Progress Note Date: 05/07/22 31-year-old male patient brought into the emergency department because of his active and aggressive behavior. The patient was in [place] where he was found to active years and he was half dressed in the lobby. He was brought into the emergency department and the patient was in a manic state. He became very agitated in the emergency department. It took at least 10 people to restrain this gentleman. He was acting psychotic. At that point, he was given Haldol 5 mg 2, Ativan a total of 2 mg, ketamine a total of 100 mg and Benadryl a total of 100 mg. Subsequently, the patient got transferred to intensive care unit and the patient is currently on a Precedex drip running at 0.4 mcg/kg/h. Serum alcohol was positive at 15. Covid 19 testing was negative. Labs showed an acute kidney injury with a BUN of 35 and a creatinine of 1.9. Sodiums of 140 with a potassium level of 4.8. Glucose was 52 and this was treated and the sugar currently is at 107. The previous gauze at 19.3 hemoglobin is 15.3 and the platelet does to 60. Urine drug screen has not been done yet and this sample has been sent and was not resulted. No chest x-ray. No CAT scan of the brain. Currently is on also on IV fluids with normal saline at the rate of 75 mL an hour. He is in sinus tachycardia. He is on oxygen at 2 L per minute nasal cannula. On 05/06/2022, the patient is awake and alert and he is off Precedex since yesterday 3 PM. No focal neurological deficits. Is a typical amphetamine overdose and the patient's urine drug screen was also positive for amphetamine. He also had a component of rhabdomyolysis. CPK was 2935. He was given IV fluids and his acute kidney injury is also improving. Creatinine down to 1.26. Sodium level is at 137 with a potassium level of 3.6. He did have episodes of hypoglycemia. Based on that, he was started on D5 water. His blood sugar this morning is at 98. D5 water is running at the rate of 1 25 mL an hour. Covid 19 testing is essentially negative. No other significant events overnight. No seizure activity. No focal neurological deficit. He is alert and awake. Chest x-ray was negative. Is currently on room air oxygen. The patient was also evaluated seen by psychiatry. The working diagnosis still substance-induced psychosis related to amphetamine. He also had alcohol in his system and the time of his arrival. The patient is seen today 05/07/2022 in follow-up on the regular medical floor. He is awake and alert in no acute distress. He is maintaining good O2 saturations in the 90s on room air. White count 6.1. Hemoglobin 12.6. Platelets 247. Sodium 141. Potassium 3.9. BUN 12. Creatinine 1.0. CK trending down 1271. He has lactated Ringer's at 125 ML's per hour. He has not required any Ativan in the past 24 hours. He is calm and cooperative currently. Lovenox for DVT prophylaxis. Remains on multivitamins and thiamine. Objective - Vital Signs Vital signs: Vital Signs Temp 98.3 F 05/07/22 07:24 Pulse 66 05/07/22 07:24 Resp 16 05/07/22 07:24 BP 124/73 05/07/22 07:24 Pulse Ox 95 05/07/22 07:24 FiO2 Intake & Output 05/06/22 05/07/22 05/07/22 18:59 06:59 18:59 Intake Total 1450 840 Output Total 0 Balance 1450 840 Intake: IV 250 Dextrose 5% in Water 1, 250 000 ml @ 125 mls/hr IV . Q8H [facility] Rx#:[id number] Oral 1200 840 Output: Urine 0 Other: Voiding Method Urinal # Voids 2 2 # Bowel Movements 1 - Exam General: Awake, alert 31-year-old male, cooperative, overweight, currently on room air oxygen Derm: no unusual rashes/lesions, warm Head: atraumatic, normocephalic, symmetric Eyes: EOMI, no lid lag, anicteric sclera, pupils equal round reactive to light ENT: Nose and ears atraumatic Neck: No cervical lymphadenopathy, trachea midline, supple Mouth: no lip lesion, mucus membranes moist Cardiovascular: S1S2 reg, no murmur, positive dorsalis pedis pulse bilateral, no edema Lungs: CTA bilateral, no rhonchi, no rales, no accessory muscle use Abdominal: soft, nontender to palpation, no guarding Ext:No gross muscle atrophy, no contractures, Neuro: No gross focal neuro deficits, alert and awake Psych: No signs of any acute psychosis at this point in time. - Labs CBC & Chem 7: 05/07/22 05:08 05/07/22 05:08 Labs: Abnormal Lab Results - Last 24 Hours (Table) 05/06/22 05/07/22 05/07/22 Range/Units 04:21 05:08 05:08 RBC 4.27 L (4.40-5.60) X 10*6/uL Hgb 12.6 L (13.0-17.0) g/dL Hct 36.8 L (39.6-50.0) % Anion Gap 9.50 L (10.00-18.00) mmol/L Creatine Kinase 2316 H* (55-170) U/L 05/07/22 Range/Units 05:08 RBC (4.40-5.60) X 10*6/uL Hgb (13.0-17.0) g/dL Hct (39.6-50.0) % Anion Gap (10.00-18.00) mmol/L Creatine Kinase 1271 H* (55-170) U/L Assessment and Plan Assessment: Substance induced psychosis, recovered. This is related to amphetamine Mild rhabdomyolysis Altered mental status, acute delirium, recovered Acute alcohol intoxication Sinus tachycardia, recovered Acute kidney injury Acute agitation/psychosis, recovered Hypoglycemia, recovered Plan: The patient was seen and evaluated Calm and cooperative currently Stable and on room air No Ativan required Stable from the critical care standpoint We will see as needed I have personally seen and examined the patient, performed the documentation and the assessment and plan as written. Number of minutes spent on the visit: 10.
--- NOTE | 2022-05-07 14:02 | P.PN ---
Subjective Progress Note Date: 05/07/22 Patient seen and examined at bedside. Patient was calm. Patient denied chest pain shortness of breath nausea vomiting fevers or chills. CPK this morning still elevated at 1271. Objective - Vital Signs Vital signs: Vital Signs Temp 98.4 F 05/07/22 12:49 Pulse 69 05/07/22 12:49 Resp 16 05/07/22 12:49 BP 109/69 05/07/22 12:49 Pulse Ox 99 05/07/22 12:49 FiO2 Intake & Output 05/06/22 05/07/22 05/07/22 18:59 06:59 18:59 Intake Total 1450 840 Output Total 0 Balance 1450 840 Intake: IV 250 Dextrose 5% in Water 1, 250 000 ml @ 125 mls/hr IV . Q8H [facility] Rx#:[id number] Oral 1200 840 Output: Urine 0 Other: Voiding Method Urinal # Voids 2 2 # Bowel Movements 1 - Exam General: [non toxic], [no distress], [appears at stated age] Derm: [warm], [dry] Head: [atraumatic], [normocephalic], [symmetric] Eyes: [EOMI], [no lid lag], [anicteric sclera] Mouth: [no lip lesion], [mucus membranes moist] Cardiovascular: [S1S2 reg], [no murmur], [positive posterior tibial pulse bilateral], Lungs: [CTA bilateral], [no rhonchi, no rales] , [no accessory muscle use] Abdominal: [soft], [ nontender to palpation], [no guarding], [no appreciable organomegaly] Ext: [no gross muscle atrophy], [no edema], [no contractures] Neuro: [ CN II-XI grossly intact], [no focal neuro deficits] Psych: [Alert], [oriented], [appropriate affect] - Labs CBC & Chem 7: 05/07/22 05:08 05/07/22 05:08 Labs: Abnormal Lab Results - Last 24 Hours (Table) 05/07/22 05/07/22 05/07/22 Range/Units 05:08 05:08 05:08 RBC 4.27 L (4.40-5.60) X 10*6/uL Hgb 12.6 L (13.0-17.0) g/dL Hct 36.8 L (39.6-50.0) % Anion Gap 9.50 L (10.00-18.00) mmol/L Creatine Kinase 1271 H* (35-257) U/L Assessment and Plan Assessment: 1. Acute toxic encephalopathy likely caused by substance induced psychosis and cute alcohol intoxication resolved Started on IV Ativan as needed per CIWA scoring, for alcohol withdrawal Psychiatry following, may or may not consider patient for inpatient rehab 2. Rhabdomyolysis Continue IV fluids Repeat CPK in the morning if continues to improve full plan for discharge 3. Nonoliguric, Acute kidney injury resolved Continue IV fluids 4. Substance use disorder consider outpatient rehab once discharged Started on IV Ativan as needed per CIWA scoring, for alcohol withdrawal Psychiatry re-consulted for re-eval, may or may not consider patient for inpat ient rehab 5. Mild normocytic anemia -Normocytic anemia likely in the setting of acute illness, continue to monitor, no active bleeding 6. Hyperbilirubinemia Alcohol use disorder, drinks 1 pint of tequila daily Repeat levels in the morning 7. Transaminitis Alcohol use disorder, drinks 1 pint of tequila daily Trend AST ALT Thiamine and folic acid ordered 8. GI/DVT prophylaxisis 9. AM labs Code status: Full code Disposition: home in the in the AM pending CK levels vs inpatient psych Time with Patient: Greater than 30
[2022-05-07] MEDS: PANTOPRAZOLE 40 MG TABLET PO SCH (14:41)
--- NOTE | 2022-05-07 16:46 | P.PN ---
Progress Note - Text Progress Note Date: 05/07/22 Psychiatry follow-up note: Interval history: Patient was seen this afternoon and was directable and agreeable to speak with designer/writer. He is alert and oriented to person, place, time and situation. He is calm and cooperative. He reports good mood, sleep and appetite. Thoughts are linear and logical. He denies being depressed or needing an antidepressant. He declines residential substance abuse treatment but agrees he would benefit from seeing a therapist on an outpatient basis. He denies any suicidal or homicidal ideation, intent or plan. He denies any auditory or visual hallucinations. No paranoid ideation expressed or elicited on assessment. He reports the psychosis only occurs when he abuses Arely, which he plan to abstain from in the future. Mental status exam: General Appearance: Patient appears to be stated age, well-built tall male with tattoos on chest and arms. Behavior: No agitated behavior. Patient is calm and directable. Speech: Patient's speech is fluent and non-pressured. Speaks with soft tone. Mood/Affect: Mood is good, affect is congruent and constricted. Suicidality/Homicidality: Patient denies having any suicidal or homicidal ideation intent or plan. Perceptions: Patient denies any auditory or visual hallucinations. Though content/process: There is no evidence of any delusional thought content and thought process is linear and goal-directed. Memory and concentration: AOX3, grossly intact for the purposes of this session Judgment and insight: Improving mildly IMPRESSIONS: Substance-induced psychosis, resolved Delirium due to multiple etiologies, resolved Alcohol use disorder Stimulant use disorder PLAN: -At this time patient DOES NOT meet criteria for inpatient psychiatric admission. -Continue to treat underlying medical issues as you are -CIWA scale to monitor for alcohol withdrawal. Continue to monitor vital signs. - Haldol 5 mg po/IM Q6H PRN for psychosis/agitation and Ativan 1 mg po/IM Q6H PRN for anxiety/agitation. -thermometer production worker to provide patient with outpatient mental health/psychiatry resources for appropriate follow up upon discharge -Pit Manager spoke with patient about substance abuse and the harmful effects on medical and mental health, patient verbally understood and agreed. -thermometer production worker to provide patient substance use treatment resources including AA/NA meetings in the community. -Communicated plan to patient's nurse. -Psychiatry will sign off at this time -Please contact with any questions.
[2022-05-08] MEDS: LACTATED RINGERS 1,000 ML IV SCH (03:48)
[2022-05-08 07:35] VITALS: BP 107/54; RESP 18; TEMP 97.6
[2022-05-08] MEDS: FOLIC ACID 1 MG TAB PO SCH (08:42)
[2022-05-08] MEDS: MULTIVITAMINS, THERA 1 EACH TAB PO SCH (08:42)
[2022-05-08] MEDS: ENOXAPARIN 40 MG/0.4 ML SYRINGE SQ SCH (08:42)
[2022-05-08] MEDS: THIAMINE 100 MG TAB PO SCH (08:42)
[2022-05-08] MEDS: PANTOPRAZOLE 40 MG TABLET PO SCH (08:42)
[2022-05-08 09:14] LABS: Basophils # (A) 0.03 X 10*3/uL (0.00-0.10); Basophils % (A) 0.5 %; Eosinophils % (A) 1.6 %; HCT 35.4 % (39.6-50.0); HGB 12.1 g/dL (13.0-17.0); Immature Grans, Automated 0.5 %; Lymphocytes # (A) 2.69 X 10*3/uL (0.90-5.00); MCH 28.9 pg (27.0-32.0); MCHC 34.2 g/dL (32.0-37.0); MCV 84.5 fL (80.0-97.0); Mean Platelet Volume 10.1 fL (9.5-12.2); Monocytes # (A) 0.58 X 10*3/uL (0.20-1.00); Monocytes % (A) 9.5 %; NRBC Per 100 WBC 0 /100 WBCS (0.0-0.0); Neutrophils # (A) 2.68 X 10*3/uL (1.80-7.70); Neutrophils % (A) 43.9 %; Platelet Count 244 X 10*3/uL (140-440); RBC 4.19 X 10*6/uL (4.40-5.60); RDW 12.3 % (11.5-14.5); WBC 6.11 X 10*3/uL (4.50-10.00)
[2022-05-08 09:31] LABS: African American GFR (CKD) 130.5 (60.0-200.0); Albumin 3.8 g/dL (3.8-4.9); Albumin/Globulin Ratio 1.81 (1.60-3.17); Anion Gap 9.8 mmol/L (10.00-18.00); BUN/Creat Ratio 9.44 Ratio (12.00-20.00); Blood Urea Nitrogen 8.5 mg/dL (9.0-27.0); Calcium 9.1 mg/dL (8.7-10.3); Carbon Dioxide 24.2 mmol/L (20.0-27.5); Globulin 2.1 g/dL (1.6-3.3); Non-African American GFR(CKD) 112.6 (60.0-200.0); Potassium 3.9 mmol/L (3.5-5.5); Total Bilirubin 0.8 mg/dL (0.30-1.20); Total Protein 5.9 g/dL (6.2-8.2)
[2022-05-08 11:45] VITALS: PULSE 95
--- NOTE | 2022-05-08 14:58 | P.DS ---
Providers Date of admission: 05/05/22 04:54 Expected date of discharge: 05/08/22 Attending physician: Erin Arciniega MD Consults: 05/05/22 04:54 Consult Physician Routine Consulting Provider: Cynthia Coronado Consult Reason/Comments: Acute psychosis, petitioned Do you want consulting provider notified?: Yes, Notify in am 05/05/22 05:48 Consult Physician Routine Consulting Provider: Denice Chow Consult Reason/Comments: Acute psychosis, restrained, combative Do you want consulting provider notified?: Already Contacted 05/07/22 14:02 Consult Physician Routine Consulting Provider: Cynthia Coronado Consult Reason/Comments: re-eval for in patient psych Do you want consulting provider notified?: Yes Primary care physician: Stated None Hospital Course: The patient is a 31-year-old male who was brought into the emergency room under police custody for erratic behavior. The patient was reportedly making is seen at a hotel, where he was half dressed standing in the lobby. After arrival at the emergency room, the patient was noted to be hyperverbal and manic. He was evaluated by psychiatry and recommended for a medical admission. The patient also became very agitated in the emergency room requiring multiple people to intervene and subsequently being placed in restraints. The patient was actively psychotic at the time of interview and was not answering any questions appropriately. Vital signs at time of arrival in the emergency room showed BP 191/109, pulse 132, respiratory rate 16, SpO2 95% on room air, and temperature 99.1F. Laboratory evaluation remarkable for leukocytosis of 19.3, BUN 35, creatinine 1.93, glucose 52, total bilirubin 2.9, AST 134, ALT 67, CPK 2935, with serum alcohol level of 15. UDS was positive for amphetamine. Psychiatry was consulted and diagnosed the patient with substance induced psychosis along with alcohol use disorder. He was started on Precedex drip and admitted to ICU which was eventually weaned off. He was hydrated with intravenous fluids. His renal function and CPK improved. Psychiatry recommended against inpatient psychiatric admission. Patient seen and examined this morning. No acute events overnight. Patient reports no complaints. He denies any chest pain, shortness breath or palpitations. No nausea or vomiting. No fever or chills. Wanting to go home. Pertinent studies include chest x-ray. General: non toxic, no distress, appears at stated age Derm: warm, dry Head: atraumatic, normocephalic, symmetric Eyes: EOMI, no lid lag, anicteric sclera Mouth: no lip lesion, mucus membranes moist Cardiovascular: S1S2 reg, no murmur Lungs: CTA bilateral, no rhonchi, no rales , no accessory muscle use Ext: no gross muscle atrophy, no edema, no contractures Neuro: no focal neuro deficits Psych: Alert, oriented, appropriate affect Patient will be discharged home with the following instructions: Diet: Regular Please stop drinking alcohol and abusing illicit substances. He is encouraged hydration by mouth after discharge. Discharge Diagnosis: Rhabdomyolysis Nonoliguric, Acute kidney injury Substance use disorder Mild normocytic anemia Hyperbilirubinemia Transaminitis Alcohol use disorder, drinks 1 pint of tequila daily Resolved: Substance induced psychosis Acute toxic encephalopathy Acute alcohol intoxication Sinus tachycardia Leukocytosis Metabolic acidosis Hypoglycemia This complex discharge took 35 minutes to complete. Patient Condition at Discharge: Stable Plan - Discharge Summary Discharge Rx Participant: No New Discharge Prescriptions: Continue Ergocalciferol (Vitamin D2) [Drisdol (50,000 Iu)] 1,250 mcg PO Q7D Diclofenac Sodium Gel 3% 2 gram TOPICAL QID PRN PRN Reason: Pain Discharge Medication List Diclofenac Sodium Gel 3% 2 gram TOPICAL QID PRN 05/05/22 [History] Ergocalciferol (Vitamin D2) [Drisdol (50,000 Iu)] 1,250 mcg PO Q7D 05/05/22 [H istory] Follow up Appointment(s)/Referral(s): None,Stated [Primary Care Provider] - 1-2 days Patient Instructions/Handouts: Acute Kidney Injury (DC) Activity/Diet/Wound Care/Special Instructions: Diet: Regular Please stop drinking alcohol and abusing illicit substances. Activity Limited until seen by DR. Cobb/Stand Alone Forms: Outpatient Counseling Discharge Disposition: HOME SELF-CARE
== END 2022-05-08 13:12 | disposition home or self-care (01) | DRG 917 ==
LOC: EC 01:04 → 3SCARD 04:54 → 2SICU 05:50 → 5NMEDONC 05-06 11:53
PROVIDERS: ADMIT Internal Medicine; ATTEND Internal Medicine
PROC: HZ2ZZZZ Detoxification Services for Substance Abuse Treatment (ICD-10-PCS; principal; 2022-05-05)
DX: T43.621A Poisoning by amphetamines, accidental (unintentional), initial encounter (principal); G92.8 Other toxic encephalopathy; E87.20 Acidosis, unspecified; N17.9 Acute kidney failure, unspecified; R17 Unspecified jaundice; M62.82 Rhabdomyolysis; F30.9 Manic episode, unspecified; F05 Delirium due to known physiological condition; R00.0 Tachycardia, unspecified; F10.10 Alcohol abuse, uncomplicated; F10.229 Alcohol dependence with intoxication, unspecified; F15.159 Other stimulant abuse with stimulant-induced psychotic disorder, unspecified; Y90.0 Blood alcohol level of less than 20 mg/100 ml; Z20.822 Contact with and (suspected) exposure to COVID-19; R74.01 Elevation of levels of liver transaminase levels; Z78.1 Physical restraint status; D64.9 Anemia, unspecified; Z71.41 Alcohol abuse counseling and surveillance of alcoholic
CPT/HCPCS: 36415; 71045; 80048; 80053; 80306; 80320; 82075; 82550; 82553; 85025; 85027; 87635; 94760; 96365; 96375; 99291